=== PATIENT | male | born 1970 | race Caucasian/White ===

== ENCOUNTER 2017-09-25 10:34 | Day surgery (SDC) | payer OTHER ==
[2017-09-25] MEDS ORDERED: ONDANSETRON 4 MG INJ IV (13:00)
[2017-09-25] MEDS ORDERED: LABETALOL HCL 20MG INJ IV (13:00)
[2017-09-25] MEDS ORDERED: MIDAZOLAM 1 MG/ML 2 ML INJ IV (13:00)
[2017-09-25] MEDS ORDERED: MEPERIDINE 25 MG INJ IV (13:00)
[2017-09-25] MEDS ORDERED: DIPHENHYDRAMINE 50 MG INJ IV (13:00)
[2017-09-25] MEDS ORDERED: OXYCODONE/ACETAMINOPHEN (5/325) TAB PO ×2 (13:00)
[2017-09-25] MEDS ORDERED: Metronidazole 500 MG in NS 100 ML IVPB (13:00)
[2017-09-25] MEDS ORDERED: hydrALAzine 20 MG INJ IV (13:00)
[2017-09-25] MEDS ORDERED: METOCLOPRAMIDE 10 MG INJ IV (13:00)
[2017-09-25] MEDS ORDERED: HYDROmorphONE 1 MG/5 ML IV SYRINGE IV ×3 (13:00)
[2017-09-25] MEDS ORDERED: EPHEDrine SULFATE 50 MG/5 ML SYG IV (13:00)
[2017-09-25] MEDS ORDERED: LACTATED RINGER'S 1,000 ML (ENTER RATE) IV* (13:00)
[2017-09-25] MEDS ORDERED: FENTAnyl 50 MCG/ML VIAL IV ×3 (13:00)
[2017-09-25] MEDS ORDERED: PROPOFOL 20 ML (13:02)
[2017-09-25] MEDS ORDERED: metroNIDAZOLE 500 MG/NS (PMX) 100 ML IVPB (13:06)
[2017-09-25] MEDS: LIDOCAINE 1% (MPF) 30 ML INJ (14:00)
[2017-09-25] MEDS: BUPIVACAINE 0.5%/EPI (SDV) 30 ML INJ (14:00)
== END 2017-09-29 10:00 | disposition home or self-care (01) ==
LOC: SDS 10:34
DX: K60.1 Chronic anal fissure (principal); K62.5 Hemorrhage of anus and rectum; E78.5 Hyperlipidemia, unspecified
CPT/HCPCS: 45378; 88304